=== PATIENT | male | born 1975 | race Caucasian/White ===

== ENCOUNTER 2017-12-21 17:40 | Inpatient (IN) | payer MEDICARE, MEDICAID ==
[~2017-12-21 17:40] MED LIST: ISOVUE-370 76%-LOCM 1 ML ONE
[2017-12-21] MEDS ORDERED: Promethazine HCl 25 MG/ML VIAL ONE ×2 (17:51→22:13)
[2017-12-21] MEDS ORDERED: Fentanyl 100 MCG/2 ML VIAL ONE (17:57)
[2017-12-21] MEDS ORDERED: Lorazepam 2 MG/ML VIAL ONE (18:16)
[2017-12-21 19:00] LABS: Bilirubin Small (Negative); Blood, Urine Negative (Negative); Clarity CLEAR (Clear); Glucose, Urine (Dipstick) Negative (Negative); Leukocyte Trace (Negative); Nitrite Negative (Negative); Protein, Urine (Dipstick) 30 mg/dL (Neg-Trace); Specific Gravity, Urine 1.026 (1.002-1.036); pH, Urine 5.5 (5.0-9.0)
[2017-12-21 19:02] LABS: Bacteria/HPF None Seen HPF (None Seen); Hyaline Casts/LPF 0-3 HYALINE CAST LPF (0-3 Hyaline); Pathc Cast-AUWi Flag 0.43 (0-2.49); RBC/HPF 0-3 HPF (0-3); Squamous Epithelial 0-3 HPF (0-3)
[2017-12-21 19:09] LABS: Amphetamine Not Detected (NotDetected); Barbiturates Screen Not Detected (NotDetected); Benzodiazepine Screen Detected (NotDetected); Cocaine Metabolite Screen Not Detected (NotDetected); Medtox Control Line Valid? VALID (VALID); Medtox Reader # READER 1; Methadone Not Detected (NotDetected); Methamphetamine Not Detected (NotDetected); Opiate Screen Detected (NotDetected); Oxycodone Screen Not Detected (NotDetected); Phencyclidine (PCP) Not Detected (NotDetected); THC/Cannabinoid Screen Not Detected (NotDetected); Tricyclic Screen Not Detected (NotDetected)
[2017-12-21 19:16] LABS: Crystals/HPF 3+ CA OXALATE HPF (Negative)
[2017-12-21 19:25] LABS: #Basophils 0.1 thou/uL (0.0-0.2); #Eosinphils 0.1 thou/uL (0.0-0.7); #Lymphocytes 1.8 thou/uL (1.20-3.40); #Monocytes 1.2 thou/uL (0.11-0.59); #Neutrophils 15.1 thou/uL (1.40-6.50); %Basophils 0.3 % (0.0-1.0); %Eosinophils 0.7 % (0.0-10.0); %Lymphocytes 9.7 % (21.0-51.0); %Monocytes 6.7 % (0.0-10.0); %Neutrophils 82.5 % (42.0-75.0); Hemoglobin 16.5 g/dL (14.0-18.0); Mean Corpuscular HGB CONC 34.1 g/dL (32.0-36.0); Mean Corpuscular Hemoglobin 31.6 pg (27.0-31.0); Mean Corpuscular Volume 92.7 fL (78.0-98.0); Mean Platelet Volume 8.4 fL (7.4-10.4); Platelet Count 236 thou/uL (130-400); RBC Distribution Width 12.3 % (11.5-14.5); Red Blood Cell (RBC) Count 5.23 mill/uL (4.70-6.10); White Blood Cell (WBC) Count 18.3 thou/uL (4.8-10.8)
[2017-12-21 19:41] LABS: Acetaminophen Less than 6.0 mcg/mL (10.0-30.0); Alcohol Less than 10 mg/dL (Less than 10); Lipase 35 U/L (8-78); Salicylate Less than 8.0 mg/dL (15.0-30.0)
[2017-12-21 19:43] LABS: ALT (SGPT) 8 U/L (8-55); AST (SGOT) 13 U/L (5-34); Albumin 4.3 g/dL (3.5-5.0); Alkaline Phosphatase 47 U/L (40-150); Anion Gap 13 mmol/L (10-20); BUN (Urea Nitrogen) 14 mg/dL (8.9-20.6); Bilirubin, Total 1.9 mg/dL (0.2-1.2); CK (CPK) 164 U/L (30-200); Calc. Creatinine Clearance 0 mL/min (70-130); Calcium 9.2 mg/dL (7.8-10.44); Carbon Dioxide 19 mmol/L (22-29); Chloride 109 mmol/L (98-107); Estimated GFR-MDRD 74; Globulin 3.1 g/dL (2.4-3.5); Glucose 115 mg/dL (70-105); Potassium 3.7 mmol/L (3.5-5.1); Protein, Total 7.4 g/dL (6.0-8.3); Sodium 137 mmol/L (136-145)
[2017-12-21 19:46] LABS: CKMB 0.9 ng/mL (0-6.6); Troponin I Less than 0.010 ng/mL (< 0.028)
--- NOTE | 2017-12-21 19:59 | RAD ---
ONE VIEW CHEST: HISTORY: Pain. COMPARISON: 06/27/2015 FINDINGS: There are sternotomy wires. There is a normal cardiac silhouette. The pulmonary vessels and hilum a re normal. No consolidation or mass. No pneumothorax or osseous abnormalities. IMPRESSION: No acute cardiopulmonary process. POS: PPP
[2017-12-21] MEDS ORDERED: Enoxaparin Sodium 100 MG/ML SYRINGE ONE (20:49)
[2017-12-21] MEDS ORDERED: Acetaminophen 500 MG TAB ONE (20:49)
--- NOTE | 2017-12-21 21:30 | CT ---
CT ANGIOGRAM CHEST: HISTORY: Evaluate for pulmonary artery embolism. Chest pain x1 day. COMPARISON: None. TECHNIQUE: CT angiogram of the chest was performed in the axial plane, and 3-dimensionsl reformatted images were submitted for interpretation. FINDINGS: No mediastinal mass, lymphadenopathy, or hematoma. Heart size is within normal limits. No pericardi al effusion. The thoracic aorta and upper abdominal aorta have a normal caliber. No periaortic fat stranding. Coronary stents are noted. The visualized upper solid organs are unremarkable. There are dependent atelectatic changes. No suspicious masses or consolidation in the lung parenchym a. The trachea and central bronchi are patent. No lytic or blastic lesion in the osseous structures. Patchy, nonspecific ground glass opacities are noted. There is no pleural effusion or pneumothorax. Adequate contrast opacification of the pulmonary arterial system, to the level of the segmental arter ies. No filling defect to suggest thromboembolism. IMPRESSION: No evidence of pulmonary artery embolism to the level of the segmental arteries. POS: PPP
[2017-12-21 22:55] LABS: Troponin I Less than 0.010 ng/mL (< 0.028)
[2017-12-22] MEDS ORDERED: Sodium Chloride 0.9% 1,000 ML IV SCH (00:15)
[2017-12-22 00:25] VITALS: BMI 34.2
[2017-12-22] MEDS ORDERED: HYDROcodone/Acetaminophen 10/325 mg Tablet PO PRN ×2 (01:28→01:30)
[2017-12-22] MEDS: ALPRAZolam 1 MG TAB PO PRN ×3 (01:43→21:27)
[2017-12-22 02:25] LABS: Troponin I Less than 0.010 ng/mL (< 0.028)
[2017-12-22] MEDS ORDERED: Ondansetron ODT 4 MG TAB PO PRN (07:22)
[2017-12-22] MEDS ORDERED: Acetaminophen 325 MG TAB PO PRN (07:22)
[2017-12-22] MEDS ORDERED: Ondansetron HCl/PF 4 MG/2 ML Vial IVP PRN (07:22)
[2017-12-22] MEDS ORDERED: Bisacodyl 5 MG TAB PO PRN (07:22)
--- NOTE | 2017-12-22 08:43 | HP ---
CHIEF COMPLAINT: Chest pain. HISTORY OF PRESENT ILLNESS: This is a 42-year-old male with past medical history of hypertension, hy perlipidemia, coronary artery disease, KS in 2009, 2013, and 2014 x 2, CABG with 3-vessel disease and cardiac stents x7, chronic back pain, being admitted for chest pain. He had chest pain that came on suddenly and it was worse. Chest pain is very similar to the previous KS that he had in the past. The patient stated that the chest pain was substernal, radiated to the left arm and also to the throa t. The patient states that the chest pain was dull and pressure-like and it felt like an elephant wa s sitting on his chest and during the time of him feeling the dull chest pain, he was also diaphoreti c. The patient states that he thought the pain was going to subside by itself. However, after 5:00 p.m. , the pain was 8/10 and it was unbearable; therefore he came to the hospital. The patient states jesus t morphine helps with the pain, morphine and fentanyl helps with the pain and the patient has been gi ciro 3 sublingual nitro and patch which he states that it has helped with his pain. In the ED it was documented the patient's blood pressure was in the 200/120 systolic when en route to the hospital. T he patient has associated symptoms of shortness of breath. REVIEW OF SYSTEMS: Positive for shortness of breath, chest pain, otherwise as documented in the HPI. All other systems were reviewed and are negative. FAMILY HISTORY: Mom had heart issues and cancer, at 57. Dad 61 also has heart issues. PAST MEDICAL HISTORY: Hypertension, kidney stones, chronic back pain, coronary artery disease, KS, c ardiac stents x7. PAST SURGICAL HISTORY: CABG 3-vessel disease, bilateral knee replacement, tonsillectomy. ALLERGIES: CALCIUM CHANNEL BLOCKERS, KETORALAC, ODANSETRON, TORADOL, ORAL TRAMADOL. CURRENT MEDICATIONS: Aspirin 325 mg, lisinopril 10 mg, metoprolol 150 mg, pantoprazole 40 mg, Xanax 0.5 mg, Noel 10 mg/325 mg. PSYCHIATRIC HISTORY: The patient was previously admitted inpatient psych in 2011. Patient has bipol ar disorder. SOCIAL HISTORY: The patient tends to have tendency for drug seeking habit. The patient denies alcoh ol use, denies any illicit drug use, but currently smokes tobacco, patient smokes half a pack a day. PHYSICAL EXAMINATION: VITAL SIGNS: Blood pressure is 142/78, pulse 78, respiratory rate of 18, O2 sat of 96% on room air. GENERAL: The patient is alert, oriented x3, not in acute distress at this time, the patient is speak ing in full sentences. HEENT: Normocephalic, atraumatic. Pupils are equally round and reactive to light. Extraocular lance rs are intact. No scleral icterus. Mucous membranes are moist. NECK: Trachea is midline. No JVD, no meningeal signs. RESPIRATORY: Clear to auscultation bilaterally. No wheezing, no rales, no rhonchi is appreciated. CARDIOVASCULAR: Positive S1, S2, regular rate and rhythm. No murmurs appreciated. ABDOMEN: Positive bowel sounds, nontender, nondistended. No peritoneal signs. EXTREMITIES: Upper extremity, 5/5 upper extremity strength. No cyanosis, no clubbing, no edema. Lo wer extremities; good motor strength. No cyanosis, no edema. NEUROLOGIC: Cranial nerves II-XII grossly intact. No focal neurologic deficit noted. SKIN: Warm, dry and intact. EKG done in the ED showed normal sinus rhythm with a rate of 79. The patient has a right bundle bran ch block. IMAGING: CTA of the chest negative. No pulmonary emboli or dissection noted. ED COURSE: The patient was given Phenergan, morphine injection, Lovenox therapeutic, Tylenol. LABORATORY DATA: WBC 18.3, hemoglobin 16.5, hematocrit 48.5, platelet count is 236. D-dimer 0.59. Sodium 137, potassium 3.7, chloride 109, carbon dioxide of 19, anion gap of 13, BUN is 14, creatinine is 1.08, glucose 115. Total bilirubin is 1.9. Troponin is less than 0.010. Urinalysis; trace leuk oesterase. Toxicology patient has opioids detected in urine and also benzodiazepines. ASSESSMENT AND PLAN: 1. This is a 42-year-old male with extensive cardiac history being admitted for chest pain. At this point, we will rule out acute coronary syndrome. We have ordered troponins. Troponins at this time has been negative thus far. We will get Cardiology consult due to the patient's extensive cardiac h istory, we will order an echo to evaluate the patient's heart and will continue patient on his curren t medications and continue current management. 2. History of hyperlipidemia. We will continue patient on current management. 3. History of hypertension. We will continue patient on current management. 4. History of coronary artery disease. Continue patient on current management. 5. Deep venous thrombosis and gastrointestinal prophylaxis. We will do SCDs and no chemical gastroi ntestinal prophylaxis needed. 6. Tobacco abuse. We have instructed the patient to quit smoking.
[2017-12-22] MEDS ORDERED: Aspirin 325 mg Enteric Coated Tablet PO SCH (09:00)
[2017-12-22] MEDS: HYDROcodone/Acetaminophen 10/325 mg Tablet PO PRN ×3 (09:07→21:26)
[2017-12-22] MEDS: Lisinopril 10 MG TAB PO SCH (09:08)
[2017-12-22] MEDS: Nicotine 21 MG PATCH TD SCH (09:08)
[2017-12-22] MEDS ORDERED: Clopidogrel Bisulfate 300 MG TAB PO SCH (11:30)
[2017-12-22 12:15] LABS: Troponin I Less than 0.010 ng/mL (< 0.028)
--- NOTE | 2017-12-22 13:52 | CON ---
DATE OF CONSULTATION: 12/22/2017 HISTORY: The patient is a 42-year-old gentleman with a long history of coronary artery disease who presents with recurrent chest discomfort. The patient has previously undergone coronary bypass graft surgery. He had a RUSSELL placed to the LAD and a saphenous vein graft to the posterior descending artery. The patient also has had multiple stents placed. The patient most recently had a stent placed in [place] at [facility]. The patient states he usually has stable angina that responds to nitroglycerin tablets. The patient stated yesterday he developed severe recurrent chest discomfort. He took several nitroglycerin's without relief of his pain. The patient states that it was a severe discomfort that was associated with diaphoresis. The patient states the pain has continued throughout the day. He states he still feels discomfort. PAST MEDICAL HISTORY: 1. Coronary artery disease. 2. Hypertension. 3. Dyslipidemia. 4. Kidney stones. 5. Bipolar disorder. PAST SURGICAL HISTORY: Coronary bypass surgery, knee replacement,and tonsillectomy. ALLERGIES: CALCIUM CHANNEL BLOCKERS, KETORLAC, ALDOSTERONE, TORADOL. CURRENT MEDICATIONS: See nursing list. SOCIAL HISTORY: The patient continues to abuse tobacco. MEDICATIONS ON ADMISSION: Lisinopril 10 daily, alprazolam 2 b.i.d., Protonix 80 daily, aspirin 325 daily, metoprolol 50 b.i.d. REVIEW OF SYSTEMS: Noticeable for continued chest discomfort and for anxiety. PHYSICAL EXAMINATION: GENERAL: This is an obese gentleman in mild distress. VITAL SIGNS: Blood pressure 102/62. NECK: No jugular venous distention. LUNGS: Clear to auscultation. HEART: Regular rate and rhythm, normal S1, S2, no murmurs. ABDOMEN: Nondistended. EXTREMITIES: Showed trace edema. LABORATORY: Sodium 137, potassium 3.7, chloride 109, bicarbonate 19, BUN 14, creatinine 1.0, troponin less than 0.01. White blood cell count 18.3, hemoglobin 16.5, hematocrit 48.5, platelets 236. His EKG revealed him to have normal sinus rhythm with a prolonged first degree AV block and a right bundle branch block. IMPRESSION: 1. Chest pain, possibly due to angina. 2. History of coronary bypass surgery. 3. History of multiple stents. 4. Tobacco abuse. 5. Dyslipidemia. 6. Bipolar disorder. This gentleman presents with recurrent chest pain. Despite severe discomfort there is no evidence of a myocardial infarction. The patient will be treated with Plavix. We will restart the patient on Crestor. Further recommendations to follow. MTDD
--- NOTE | 2017-12-22 17:30 | PDOC.PN ---
- Subjective Encounter Start Date: 12/22/17 Encounter Start Time: 10:15 Subjective: pt up in bed still has some chest pain - Objective Resuscitation Status: Resuscitation Status FULL:Full Resuscitation Vital Signs & Weight: Vital Signs (12 hours) Temp Pulse Resp BP Pulse Ox 12/22/17 15:50 97.8 F 68 16 104/68 97 12/22/17 11:32 98.3 F 85 16 101/59 L 95 12/22/17 08:33 95 12/22/17 07:48 97.4 F L 55 L 16 102/62 95 Weight Weight 219 lb Result Diagrams: 12/21/17 19:17 12/21/17 19:17 Phys Exam - Physical Examination Respiratory: no wheezing, no rales, no rhonchi, wheezing present, clear to auscultation bilateral Cardiovascular: RRR, no significant murmur, no rub, gallop, irregular Gastrointestinal: soft, non-tender, no distention, positive bowel sounds pain on palpaiton of his chest wall area Dx/Plan (1) Chest pain Code(s): R07.9 - CHEST PAIN, UNSPECIFIED Status: Acute (2) CAD (coronary artery disease) Code(s): I25.10 - ATHSCL HEART DISEASE OF [place] CORONARY ARTERY W/O ANG PCTRS Status: Chronic (3) Hypertension Code(s): I10 - ESSENTIAL (PRIMARY) HYPERTENSION Status: Chronic - Plan trop negative -: echo ordered -: will await cardiology recommendation * . Review of Systems - Review of Systems ENT: negative: Ear Pain, Ear Discharge, Nose Pain, Nose Discharge, Nose Congestion, Mouth Pain, Mouth Swelling, Throat Pain, Throat Swelling, Other Cardiovascular: chest pain Gastrointestinal: negative: Nausea, Vomiting, Abdominal Pain, Diarrhea, Constipation, Melena, Hematochezia, Other Genitourinary: negative: Dysuria, Frequency, Incontinence, Hematuria, Retention , Other Musculoskeletal: negative: Neck Pain, Shoulder Pain, Arm Pain, Back Pain, Hand Pain, Leg Pain, Foot Pain, Other - Medications/Allergies Allergies/Adverse Reactions: Allergies Allergy/AdvReac Type Severity Reaction Status Date / Time ketorolac tromethamine Allergy Verified 12/22/17 00:24 [From Toradol] ondansetron HCl [From Zofran] Allergy Verified 12/22/17 00:24 tramadol Allergy Verified 12/22/17 00:24 Calcium channel blockers Allergy Intermediate Uncoded 06/28/15 01:05 Medications: Current Medications Acetaminophen (Tylenol) 650 mg PO Q4H PRN PRN Reason: Headache/Fever or Pain Hydrocodone Bitart/Acetaminophen ([place] 10/325) 2 tab PO Q6H PRN PRN Reason: Pain Last Admin: 12/22/17 15:30 Dose: 2 tab Alprazolam (Xanax) 2 mg PO BID PRN PRN Reason: Anxiety Aspirin (Ecotrin) 75 mg PO DAILY [facility] Bisacodyl (Dulcolax) 10 mg PO DAILYPRN PRN PRN Reason: Constipation Clopidogrel Bisulfate (Plavix) 75 mg PO DAILY [facility] Lisinopril (Zestril) 10 mg PO DAILY [facility] Last Admin: 12/22/17 09:08 Dose: 10 mg Metoprolol Succinate (Toprol Xl) 50 mg PO BID [facility] Last Admin: 12/22/17 09:08 Dose: 50 mg Nicotine (Nicoderm Patch) 21 mg TD Q24HR [facility] Last Admin: 12/22/17 09:08 Dose: Not Given Pantoprazole Sodium (Protonix) 80 mg PO DAILY [facility] Last Admin: 12/22/17 09:08 Dose: 80 mg Rosuvastatin Calcium (Crestor) 10 mg PO HS [facility] Sodium Chloride (Flush - Normal Saline) 10 ml IVF Q12HR [facility] Last Admin: 12/22/17 09:08 Dose: Not Given Sodium Chloride (Flush - Normal Saline) 10 ml IVF PRN PRN PRN Reason: Saline Flush
[2017-12-22] MEDS: Rosuvastatin 10 MG TAB PO SCH (21:23)
[2017-12-23 05:09] LABS: #Basophils 0.1 thou/uL (0.0-0.2); #Eosinphils 0.2 thou/uL (0.0-0.7); #Lymphocytes 2.6 thou/uL (1.20-3.40); #Monocytes 0.5 thou/uL (0.11-0.59); #Neutrophils 2.5 thou/uL (1.40-6.50); %Eosinophils 2.9 % (0.0-10.0); %Lymphocytes 44.2 % (21.0-51.0); %Monocytes 8.6 % (0.0-10.0); %Neutrophils 43.4 % (42.0-75.0); Hemoglobin 14.6 g/dL (14.0-18.0); Mean Corpuscular HGB CONC 32.4 g/dL (32.0-36.0); Mean Corpuscular Hemoglobin 30.6 pg (27.0-31.0); Mean Corpuscular Volume 94.5 fL (78.0-98.0); Platelet Count 189 thou/uL (130-400); RBC Distribution Width 12.4 % (11.5-14.5); Red Blood Cell (RBC) Count 4.76 mill/uL (4.70-6.10); White Blood Cell (WBC) Count 5.8 thou/uL (4.8-10.8)
[2017-12-23 05:28] LABS: Anion Gap 11 mmol/L (10-20); BUN (Urea Nitrogen) 15 mg/dL (8.9-20.6); Calc. Creatinine Clearance 139 mL/min (70-130); Calcium 8.7 mg/dL (7.8-10.44); Carbon Dioxide 22 mmol/L (22-29); Chloride 108 mmol/L (98-107); Estimated GFR-MDRD 86; Glucose 83 mg/dL (70-105); Potassium 4.1 mmol/L (3.5-5.1); Sodium 137 mmol/L (136-145)
[2017-12-23] MEDS: Clopidogrel Bisulfate 75 MG TAB PO SCH (08:51)
[2017-12-23] MEDS: Lisinopril 10 MG TAB PO SCH (08:51)
[2017-12-23] MEDS: Aspirin 325 mg Enteric Coated Tablet PO SCH (08:51)
[2017-12-23] MEDS: Nicotine 21 MG PATCH TD SCH (08:52)
[2017-12-23] MEDS: ALPRAZolam 1 MG TAB PO PRN ×2 (14:29→21:06)
[2017-12-23] MEDS: HYDROcodone/Acetaminophen 10/325 mg Tablet PO PRN ×2 (14:29→20:29)
--- NOTE | 2017-12-23 14:59 | NM ---
CARDIAC SPECT: CLINICAL HISTORY: 42-year-old male with chest pain, coronary artery disease, [place], CABG, stent placement, hypertension, d yslipidemia, and smoker. TECHNIQUE: A myocardial perfusion scan was performed using the single isotope one day protocol with technetium-9 9m sestamibi. 10 mCi were injected intravenously for the rest exam followed by 27 mCi for the stress exam. Pharmacologic stress with Adenosine was monitored and interpreted by Blatazar Kaiser NP. FINDINGS: A large inferior wall fixed defect is seen. No reversible defects are identified. GATED SPECT LVEF: 42%. WALL MOTION EXAM: Inferior wall hypokinesis. IMPRESSION: No evidence of reversible ischemia. POS: SONIA
[2017-12-23] MEDS ORDERED: ADENOSINE 60 MG/20 ML VIAL ONE (15:11)
--- NOTE | 2017-12-23 16:34 | PRG ---
DATE OF SERVICE: 12/23/2017 SUBJECTIVE: Mr. Cosme says he is still having chest pain today, it is improved, but still havi ng pain intermittently still going outside to smoke. OBJECTIVE: VITAL SIGNS: His blood pressure 120/59, pulse is 74. LUNGS: Clear. CARDIAC: Normal S1, normal S2. ABDOMEN: Soft, nontender. EXTREMITIES: There is no clubbing, no cyanosis or edema. A stress test that revealed a previous inferior infarct with no ischemia. The patient states he had stents "since" placed [facility] 2018 at [facility] in [place]. No details are available of that. He also told me he has had stents placed here, but reviewing the harish rds, he has had cardiac catheterizations in 2014 and 2015, but did not have stents placed, he had dif fuse atherosclerotic disease. ASSESSMENT: 1. Continued chest pain. 2. Diffuse atherosclerosis. 3. Continue chest pain. PLAN: 1. Ultrasound of the gallbladder. 2. We will try to obtain all records from recent cardiac catheterization.
[2017-12-23] MEDS: Rosuvastatin 10 MG TAB PO SCH (20:28)
--- NOTE | 2017-12-23 21:11 | DIS ---
DATE OF ADMISSION: 12/22/2017 DATE OF DISCHARGE: 12/23/2017 DISCHARGE DIAGNOSES: 1. Chest pain. 2. History of coronary artery disease. 3. Hypertension. HOSPITAL COURSE: The patient is a very pleasant 42-year-old male who presented to the hospital with chest pain. Given his significant history of coronary artery disease, he initially underwent a CT th orax for mildly elevated D-dimer. The CT thorax indicated no evidence of embolism. At this time, he was seen by Cardiology. His troponins x3 were negative. He underwent initially an echocardiogram w [facility] indicated an EF of 40-45%, mildly dilated left atrium, mildly enlarged left ventricle and after that he underwent a nuclear stress test which indicated he had a noninferior wall hypokinesia; howeve r, no evidence of reversible ischemia. The patient was discharged home. He will follow up with Card iology and primary care as an outpatient. MEDICATIONS: His home medications are the following: Lisinopril 10 mg daily, Xanax 2 mg b.i.d. p.r. n., Protonix 80 mg daily, metoprolol 50 mg b.i.d., Crestor 10 mg at bedtime, Clopidogrel 75 daily, as pirin 75 mg daily. This was done by the director of individual giving. PHYSICAL EXAMINATION: VITAL SIGNS: Temperature of 98.4, 62, 16, 97% room air, 136/75. GENERAL: He is awake, alert, oriented, is in no apparent distress. CARDIOVASCULAR: S1, S2 present. No murmurs, rubs or gallops. ABDOMEN: Soft, nontender. Bowel sounds positive. EXTREMITIES: No edema. Again, he will be discharged home. Follow up with primary and Cardiology.
--- NOTE | 2017-12-24 08:05 | ULT ---
GALLBLADDER ULTRASOUND: Date: 12/24/17 HISTORY: Right upper quadrant pain. FINDINGS: Real-time imaging of the right upper quadrant demonstrates a normal appearing gallbladder. Common jac t is 5.0 mm. Visualized liver parenchyma shows no focal abnormalities. It measures approximately 18.0 cm in length. The pancreas is obscured. Right kidney is normal in size and not obstructed. IMPRESSION: Unremarkable gallbladder ultrasound. POS: CALLY
--- NOTE | 2017-12-24 08:44 | PDOC.PN ---
- Subjective Encounter Start Date: 12/23/17 - Objective Resuscitation Status: Resuscitation Status FULL:Full Resuscitation Vital Signs & Weight: Vital Signs (12 hours) Temp Pulse Resp BP BP Pulse Ox 12/24/17 08:24 97.6 F 63 20 117/57 L 99 12/24/17 04:00 97.4 F L 52 L 14 125/73 97 12/23/17 23:27 98.1 F 54 L 14 107/61 96 Weight Weight 219 lb I&O: 12/23/17 12/24/17 12/25/17 06:59 06:59 06:59 Intake Total 730 Balance 730 Result Diagrams: 12/23/17 04:38 12/23/17 04:38 Dx/Plan (1) Chest pain Code(s): R07.9 - CHEST PAIN, UNSPECIFIED Status: Acute (2) CAD (coronary artery disease) Code(s): I25.10 - ATHSCL HEART DISEASE OF [place] CORONARY ARTERY W/O ANG PCTRS Status: Chronic (3) Hypertension Code(s): I10 - ESSENTIAL (PRIMARY) HYPERTENSION Status: Chronic - Plan * .
[2017-12-24] MEDS: ALPRAZolam 1 MG TAB PO PRN ×2 (10:01→20:28)
[2017-12-24] MEDS: HYDROcodone/Acetaminophen 10/325 mg Tablet PO PRN ×3 (10:02→23:45)
[2017-12-24] MEDS: Clopidogrel Bisulfate 75 MG TAB PO SCH (10:03)
[2017-12-24] MEDS: Lisinopril 10 MG TAB PO SCH (10:03)
[2017-12-24] MEDS: Nicotine 21 MG PATCH TD SCH (10:08)
[2017-12-24] MEDS: Aspirin 325 mg Enteric Coated Tablet PO SCH (10:14)
--- NOTE | 2017-12-24 16:40 | PDOC.PN ---
- Subjective Encounter Start Date: 12/24/17 Encounter Start Time: 12:30 Subjective: pt up in bed has chest pain - Objective Resuscitation Status: Resuscitation Status FULL:Full Resuscitation Vital Signs & Weight: Vital Signs (12 hours) Temp Pulse Resp BP Pulse Ox 12/24/17 16:04 97.8 F 66 16 149/78 H 96 12/24/17 11:36 98.4 F 56 L 16 110/55 L 95 12/24/17 08:24 97.6 F 63 20 117/57 L 99 Weight Weight 219 lb I&O: 12/23/17 12/24/17 12/25/17 06:59 06:59 06:59 Intake Total 730 Balance 730 Result Diagrams: 12/23/17 04:38 12/23/17 04:38 Phys Exam - Physical Examination Neck: no nodes, no JVD, supple, full ROM Respiratory: no wheezing, no rales, no rhonchi, wheezing present, clear to auscultation bilateral Cardiovascular: RRR, no significant murmur, no rub, gallop, irregular Gastrointestinal: soft, non-tender, no distention, positive bowel sounds Dx/Plan (1) Chest pain Code(s): R07.9 - CHEST PAIN, UNSPECIFIED Status: Acute (2) CAD (coronary artery disease) Code(s): I25.10 - ATHSCL HEART DISEASE OF [place] CORONARY ARTERY W/O ANG PCTRS Status: Chronic (3) Hypertension Code(s): I10 - ESSENTIAL (PRIMARY) HYPERTENSION Status: Chronic - Plan pt's stress test negative, RUQ normal -: awaiting records per cardiology recommendation -: Having a 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 Review of Systems - Review of Systems Respiratory: negative: Cough, Dry, Shortness of Breath, Hemoptysis, SOB with Excertion, Pleuritic Pain, Sputum, Wheezing Cardiovascular: chest pain. negative: palpitations, orthopnea, paroxysmal nocturnal dyspnea, edema, light headedness, other Genitourinary: negative: Dysuria, Frequency, Incontinence, Hematuria, Retention , Other - Medications/Allergies Allergies/Adverse Reactions: Allergies Allergy/AdvReac Type Severity Reaction Status Date / Time ketorolac tromethamine Allergy Verified 12/22/17 00:24 [From Toradol] ondansetron HCl [From Zofran] Allergy Verified 12/22/17 00:24 tramadol Allergy Verified 12/22/17 00:24 Calcium channel blockers Allergy Intermediate Uncoded 06/28/15 01:05 Medications: Current Medications Acetaminophen (Tylenol) 650 mg PO Q4H PRN PRN Reason: Headache/Fever or Pain Hydrocodone Bitart/Acetaminophen ([place] 10/325) 2 tab PO Q6H PRN PRN Reason: Pain Last Admin: 12/24/17 10:02 Dose: 2 tab Alprazolam (Xanax) 2 mg PO BID PRN PRN Reason: Anxiety Last Admin: 12/24/17 10:01 Dose: 2 mg Aspirin (Ecotrin) 75 mg PO DAILY [facility] Last Admin: 12/24/17 10:14 Dose: 75 mg Bisacodyl (Dulcolax) 10 mg PO DAILYPRN PRN PRN Reason: Constipation Clopidogrel Bisulfate (Plavix) 75 mg PO DAILY [facility] Last Admin: 12/24/17 10:03 Dose: 75 mg Lisinopril (Zestril) 10 mg PO DAILY [facility] Last Admin: 12/24/17 10:03 Dose: 10 mg Metoprolol Succinate (Toprol Xl) 50 mg PO BID [facility] Last Admin: 12/24/17 10:03 Dose: 50 mg Nicotine (Nicoderm Patch) 21 mg TD Q24HR [facility] Last Admin: 12/24/17 10:08 Dose: Not Given Pantoprazole Sodium (Protonix) 80 mg PO DAILY [facility] Last Admin: 12/24/17 10:03 Dose: 80 mg Rosuvastatin Calcium (Crestor) 10 mg PO HS [facility] Last Admin: 12/23/17 20:28 Dose: 10 mg Sodium Chloride (Flush - Normal Saline) 10 ml IVF Q12HR [facility] Last Admin: 12/24/17 10:08 Dose: 10 ml Sodium Chloride (Flush - Normal Saline) 10 ml IVF PRN PRN PRN Reason: Saline Flush
--- NOTE | 2017-12-24 18:38 | PRG ---
DATE OF SERVICE: 12/24/2017 SUBJECTIVE: Mr. Cosme is resting comfortably now. He says he still has chest pain, which is relatively continuous. OBJECTIVE: VITAL SIGNS: His blood pressure has been variable, 110/55, 149/78; pulse 56 to 66, frequently to low 50s. LUNGS: Clear. CARDIAC: Normal S1, normal S2. The patient did have ultrasound of the abdomen, unremarkable gallbladder. ASSESSMENT: 1. Coronary artery disease with diffuse distal atherosclerosis. 2. Previous bypass surgery. 3. Most recent catheterization done here in 2014 revealed that he had a patent internal mammary charlene ry to the LAD. He had a stent placed to his LAD at an outside institution, which was patent. 4. Vein graft to the right coronary artery is occluded. 5. Circumflex, small distal vessels, no obstructive stenosis. 6. Right bundle branch block, which is chronic. The patient initially told us that he was in a specific hospital in [place], which he found that he was not in. Multiple other hospitals were contacted per the family's direction. He has not been in any of those. He now tells us that he was in [place] in [place]. We are attempting to obtain those records . The patient has had stress testing, which showed previous infarct with no ischemia. At this point , I discussed with the patient, we could do heart catheterization to further define the coronaries an d see if there is anything further that could be done. The prognosis is likely poor in this gentlema n, who has severe disease at a young age and continues to smoke. He understands he is uncertain whet her he wishes to pursue catheterization. I told him we could do that tomorrow to see if there is any thing else that could be done to improve his symptoms. The patient is uncertain about that at this t rosey. We would recommend increasing his cholesterol medicine.
[2017-12-24] MEDS: Rosuvastatin 10 MG TAB PO SCH (20:28)
[2017-12-25] MEDS ORDERED: Aspirin 81 mg Enteric Coated Tablet PO SCH (09:00)
[2017-12-25] MEDS ORDERED: Amlodipine 5 MG TAB PO SCH (09:00)
[2017-12-25] MEDS: ALPRAZolam 1 MG TAB PO PRN (09:16)
[2017-12-25] MEDS: HYDROcodone/Acetaminophen 10/325 mg Tablet PO PRN (09:17)
[2017-12-25] MEDS: Clopidogrel Bisulfate 75 MG TAB PO SCH (09:17)
[2017-12-25] MEDS: Lisinopril 10 MG TAB PO SCH (09:18)
[2017-12-25] MEDS: Nicotine 21 MG PATCH TD SCH (09:19)
[2017-12-25 12:25] VITALS: BP 166/88; TEMP 97.9
--- NOTE | 2017-12-25 13:45 | PRG ---
DATE OF SERVICE: 12/25/2017 Mr. Cosme is feeling better today. Still has occasional chest pain, but it is improved. PHYSICAL EXAMINATION: VITAL SIGNS: Blood pressure is variable 153/83, pulse 74. LUNGS: Clear. CARDIAC: Normal S1, normal S2. ABDOMEN: Soft, nontender. EXTREMITIES: There is no edema. After a PROLONGED search by the staff here at [facility], we were able to finally track down his medical records. He initially gave us information about being in a different hospital, but ultimately found that it was in the [facility] system, it started out at [facility]. He underwent diagnostic catheterization and it was felt the situation at that point was thought to be very high risk for any further intervention. Therefore, he was transferred for high risk intervention with possible availability of Impella at [facility] in [facility]. The coronary anatomy showed the LAD is occluded. The circumflex was a small diffusely diseased vessel. Right coronary occluded. RCA graft previously documented occluded. The patient had intervention on the stent at the anastomosis, 6 Icelandic internal mammary artery guide was used. It was predilated with a 2.5 mm balloon then 2.75 mm balloon up to 17 atmospheres. It was thought that he had only a 5% residual stenosis after the balloon dilatation. The patient during this current admission has had no evidence of any ischemia on stress testing. He has a fixed defect of the inferior wall, but there is no ischemia of the anterior wall. At this time the patient declines cardiac catheterization. This catheterization could be repeated and if he has had restenosis consideration for another high risk intervention could be given versus repeat surgery. The patient unfortunately continues to smoke and he knows it is a very important not to smoke. The patient's blood pressure is elevated here. I would recommend consideration for increasing Crestor to 20 mg at bedtime and adding amlodipine 5 mg a day. It is not clear to me which physician who plans on following up. If he would like to follow up with me I would be glad to do that. He has not followed up with me anytime in the near past. Unfortunately, the patient did continue to smoke while here in the hospital at least initially during this hospitalization, although I do not think he went outside to smoke yesterday. assisted prognosis unfortunately is guarded to poor. KORTNEY
[2017-12-25] MEDS ORDERED: Rosuvastatin 20 MG TAB PO SCH (21:00)
--- NOTE | 2017-12-25 22:07 | DIS ---
DATE OF ADMISSION: 12/21/2017 DATE OF DISCHARGE: 12/25/2017 PRIMARY CARE PROVIDER: Antione Smallwood MD, [place]. DISCHARGE DIAGNOSES: 1. Chest pain 2. Likely cardiac source for chest pain. CONSULTATIONS DURING THIS HOSPITALIZATION: Cardiology, Dr. Rodriguez, patient was also seen by Dr. Meléndez. CONDITION OF PATIENT ON THE DAY OF DISCHARGE: I assessed Mr. Cosme on the day of discharge. He denies any current chest pain. He denies any nausea or vomiting. Vital signs are stable. S1 and S2 are heard, regular. Lungs are clear to auscultation bilaterally. DISCHARGE MEDICATIONS: Xanax 2 mg 2 times a day as needed, lisinopril 10 mg daily, Protonix 80 mg daily, NicoDerm CQ 21 mg transdermal every 24 hours, Norvasc 5 mg daily, aspirin 81 mg daily, Plavix 75 mg daily, Toprol-XL 50 mg daily, and Crestor 20 mg at bedtime. HOSPITAL COURSE: Mr. Cosme is a pleasant 42-year-old gentleman who was admitted to [facility] on 12/21/2017 for chest pain. Please refer to Dr. Rg's history and physical note dated 12/22/2017 for further details. He was seen by Cardiology Service. A 2D echocardiogram showed a left ventricle ejection fraction of 45-50%, mildly dilated left atrium , akinetic inferior wall segment, mildly enlarged right ventricle cavity, mildly increased left ventricular size, moderate mitral regurgitation and mild tricuspid regurgitation. Patient's old medical records were obtained. He had 1/3 functioning grafts. Patient was advised cardiac catheterization. After discussion with Cardiology Service, patient made an informed decision not to have cardiac catheterization. He is being advised to follow up with his primary care provider as an outpatient. 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 He has been advised to stop smoking. His Crestor dose was increased and amlodipine was added to his medications. He is being discharged on aspirin and Plavix. Many thanks for allowing me to participate in your patient's care. Please feel free to contact me with any questions or concerns. DISCHARGE DESTINATION: Home. TOTAL AMOUNT OF TIME SPENT COORDINATING THIS DISCHARGE: 34 minutes. [facility] CENTERQuinton
== END 2017-12-25 15:03 | disposition home or self-care (01) | DRG 303 ==
LOC: ERS 17:40 → 2SW 23:30
PROVIDERS: ADMIT Internal Medicine; ATTEND Internal Medicine
DX: I25.118 Atherosclerotic heart disease of native coronary artery with other forms of angina pectoris (principal); T82.898A Other specified complication of vascular prosthetic devices, implants and grafts, initial encounter; I10 Essential (primary) hypertension; E78.5 Hyperlipidemia, unspecified; I25.2 Old myocardial infarction; Z95.1 Presence of aortocoronary bypass graft; Z95.5 Presence of coronary angioplasty implant and graft; G89.29 Other chronic pain; Z87.442 Personal history of urinary calculi; Z96.653 Presence of artificial knee joint, bilateral; Z79.82 Long term (current) use of aspirin; F31.9 Bipolar disorder, unspecified; F17.210 Nicotine dependence, cigarettes, uncomplicated; I45.10 Unspecified right bundle-branch block
CPT/HCPCS: 36415; 71045; 71275; 76705; 78452; 80048; 80053; 80306; 80307; 81003; 81015; 82553; 83690; 83880; 84443; 84484; 85025; 85379; 93005; 93017; 93306; 96361; 96365; 96372; 96374; 96375; A4216; A9500; J0153; J1610; J1642; J1650; J2060; J2270; J2550; J3010

== ENCOUNTER 2018-09-05 15:35 | Emergency (ER) | payer MEDICARE, MEDICAID ==
[2018-09-05] MEDS ORDERED: HYDROcodone/Acetaminophen 5/325 mg Tablet ONE (16:18)
--- NOTE | 2018-09-05 16:18 | RAD ---
Radiograph right knee 4 views: HISTORY: Traumatic right knee pain FINDINGS: No fracture or dislocation IMPRESSION: Negative
--- NOTE | 2018-09-05 16:19 | RAD ---
Radiograph right ankle 3 views: HISTORY: Traumatic right ankle pain FINDINGS: Ankle mortise is congruent. Thin short linear soft tissue calcification directly posterior to posteri or malleolus. The adjacent osseous cortical surface appears well corticated, and therefore this is probably chronic. No linear fracture lucency visualized. IMPRESSION: No fracture
--- NOTE | 2018-09-05 16:41 | RAD ---
Radiograph right foot 3 views: HISTORY: 43-year-old male status post traumatic injury to right foot FINDINGS: No fracture, dislocation, or any other major osseous abnormality IMPRESSION: Negative
== END 2018-09-05 17:06 | disposition home or self-care (01) ==
LOC: SCSER 15:35
DX: S83.91XA Sprain of unspecified site of right knee, initial encounter (principal); S93.401A Sprain of unspecified ligament of right ankle, initial encounter; I25.10 Atherosclerotic heart disease of native coronary artery without angina pectoris; I25.2 Old myocardial infarction; I10 Essential (primary) hypertension; M19.90 Unspecified osteoarthritis, unspecified site; E78.00 Pure hypercholesterolemia, unspecified; F31.9 Bipolar disorder, unspecified; F17.210 Nicotine dependence, cigarettes, uncomplicated; X50.1XXA Overexertion from prolonged static or awkward postures, initial encounter; Y93.51 Activity, roller skating (inline) and skateboarding; Y99.8 Other external cause status

== ENCOUNTER 2019-01-10 17:50 | Observation (INO) | payer MEDICARE, MEDICAID ==
[2019-01-10 18:41] LABS: #Basophils 0.1 thou/uL (0.0-0.2); #Eosinphils 0.2 thou/uL (0.0-0.7); #Lymphocytes 1.7 thou/uL (1.20-3.40); #Monocytes 0.8 thou/uL (0.11-0.59); #Neutrophils 6.7 thou/uL (1.40-6.50); %Basophils 0.7 % (0.0-1.0); %Eosinophils 2.3 % (0.0-10.0); %Lymphocytes 17.8 % (21.0-51.0); %Monocytes 8.6 % (0.0-10.0); %Neutrophils 70.6 % (42.0-75.0); Hemoglobin 15.5 g/dL (14.0-18.0); Mean Corpuscular HGB CONC 35.2 g/dL (32.0-36.0); Mean Corpuscular Volume 90.9 fL (78.0-98.0); Mean Platelet Volume 8.7 fL (7.4-10.4); Platelet Count 211 thou/uL (130-400); RBC Distribution Width 12.1 % (11.5-14.5); Red Blood Cell (RBC) Count 4.85 mill/uL (4.70-6.10); White Blood Cell (WBC) Count 9.5 thou/uL (4.8-10.8)
[2019-01-10] MEDS ORDERED: Morphine 4 MG/ML VIAL ONE ×2 (18:44→20:47)
[2019-01-10] MEDS ORDERED: Aspirin Chewable 81 MG TAB ONE (18:45)
[2019-01-10] MEDS ORDERED: Promethazine HCl 25 MG/ML VIAL ONE (18:45)
[2019-01-10 19:06] LABS: ALT (SGPT) 21 U/L (8-55); AST (SGOT) 28 U/L (5-34); Albumin 4.2 g/dL (3.5-5.0); Alkaline Phosphatase 46 U/L (40-110); Anion Gap 14 mmol/L (10-20); BUN (Urea Nitrogen) 18 mg/dL (8.9-20.6); Bilirubin, Total 0.3 mg/dL (0.2-1.2); CK (CPK) 96 U/L (30-200); Calc. Creatinine Clearance 0 mL/min (70-130); Calcium 9.2 mg/dL (7.8-10.44); Carbon Dioxide 24 mmol/L (22-29); Chloride 104 mmol/L (98-107); Estimated GFR-MDRD 49; Globulin 3.5 g/dL (2.4-3.5); Glucose 89 mg/dL (70-105); Lipase 54 U/L (8-78); Potassium 4.9 mmol/L (3.5-5.1); Protein, Total 7.7 g/dL (6.0-8.3); Sodium 137 mmol/L (136-145)
--- NOTE | 2019-01-10 19:26 | RAD ---
FRONTAL RADIOGRAPH CHEST: Date: 01-10-19 Comparison: 12-21-17 History: Chest pain, syncope. FINDINGS: Heart and mediastinal contours are stable. Stable midline sternotomy wires. No pneumothorax or pleural fluid. No focal consolidation or alveolar edema. IMPRESSION: No focal consolidation or alveolar edema. POS: GIOVANNA
[2019-01-10 22:04] LABS: Troponin I 0.022 ng/mL (< 0.028)
[2019-01-10] MEDS ORDERED: Aspirin 325 MG TAB PO SCH (23:15)
--- NOTE | 2019-01-10 23:34 | PDOC.EVN ---
Event Note - Event Note Event Note: [id number] HP
[2019-01-11] VITALS: BMI 37.7
--- NOTE | 2019-01-11 00:04 | HP ---
CHIEF COMPLAINT: Chest pain. HISTORY OF PRESENT ILLNESS: Mr. Cosme is a 43-year-old male with past medical history of coronary artery disease, bipolar disorder, renal cancer, hypertension, hyperlipidemia, among others, presented to the emergency room with chest pain. The patient stated that he fell down after an episode of loss of consciousness. The patient also reports nausea. Initial workup in the emergency room including troponin at 0.02. EKG showed sinus rhythm with right bundle-branch block with frequent PVCs. Given the patient's presentation and risk factors, the patient is being admitted to the hospital for further management. PAST MEDICAL HISTORY: As mentioned above in the history of present illness. PAST SURGICAL HISTORY: 1. Cardiac stents. 2. Appendectomy. 3. Coronary artery bypass graft surgery. 4. Bilateral knee replacement. 5. Tonsillectomy. SOCIAL HISTORY: He smokes 1 pack a day. 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 Drinks alcohol socially. FAMILY HISTORY: Reviewed, noncontributory. HOME MEDICATIONS: Please see home medication reconciliation form for updated medications. ALLERGIES: ALLERGIC TO CALCIUM CHANNEL BLOCKERS. TORADOL, TRAMADOL, AND ZOFRAN. REVIEW OF SYSTEMS: Review of 14 systems negative except what is mentioned in the history of present illness. PHYSICAL EXAMINATION: GENERAL: The patient is awake, alert, does not appear to be in acute distress. VITAL SIGNS: Blood pressure 126/90, pulse is 87, respiratory rate is 14, temperature 98.2. HEAD: Normocephalic and atraumatic. NECK: Supple. No JVD. CHEST: Fair bilateral air entry. HEART: S1, S2. Regular. ABDOMEN: Soft, nontender. Bowel sounds present. NEUROLOGIC: Awake, alert, oriented x3. PSYCHIATRIC: Normal mood. LABORATORY DATA: Troponin 0.02. Creatinine 1.5. ASSESSMENT: 1. Acute chest pain. 2. Syncope? 3. Coronary artery disease with history of myocardial infarction. History of cardiac stents. 4. Bipolar disorder. PLAN: 1. Admit. 2. Telemetry monitoring. 3. Aspirin. 4. Orthostatic vital signs. 5. 2D echo. 6. Serial cardiac enzymes. 7. Consider cardiology consultation in a.m. 8. Reconcile home medications. 9. Deep venous thrombosis prophylaxis as appropriate. 10. Expected length of stay, at least 1 midnight if the patient is stable and further workup negative. Job ID: [id number]
[2019-01-11] MEDS ORDERED: ALPRAZolam 1 MG TAB PO PRN (00:36)
[2019-01-11] MEDS ORDERED: Promethazine 25 MG TAB PO PRN (00:36)
[2019-01-11] MEDS ORDERED: Dextrose 5 %-0.45 % NaCl 1,000 ML IV SCH (01:00)
[2019-01-11 01:01] LABS: Troponin I Less than 0.010 ng/mL (< 0.028)
[2019-01-11] MEDS: HYDROcodone/Acetaminophen 5/325 mg Tablet PO PRN ×2 (01:02→08:54)
[2019-01-11 04:30] LABS: Anion Gap 15 mmol/L (10-20); BUN (Urea Nitrogen) 24 mg/dL (8.9-20.6); Calc. Creatinine Clearance 120 mL/min (70-130); Calcium 8.6 mg/dL (7.8-10.44); Carbon Dioxide 19 mmol/L (22-29); Chloride 106 mmol/L (98-107); Estimated GFR-MDRD 65; Glucose 103 mg/dL (70-105); Potassium 4.2 mmol/L (3.5-5.1); Sodium 136 mmol/L (136-145)
[2019-01-11 06:56] LABS: Acetaminophen Less than 6.0 mcg/mL (10.0-30.0); Alcohol Less than 10 mg/dL (Less than 10); Salicylate Less than 8.0 mg/dL (15.0-30.0)
[2019-01-11] MEDS ORDERED: Isosorbide Mononitrate (ER) 30 MG TAB PO SCH (09:00)
[2019-01-11] MEDS ORDERED: Aspirin 325 mg Enteric Coated Tablet PO SCH (09:00)
[2019-01-11] MEDS ORDERED: Aspirin 325 MG TAB PO SCH (09:00)
[2019-01-11] MEDS ORDERED: FLU VACC QS2019-20(6MOS UP)/PF 60 MCG/0.5 ML SYRINGE IM ONE (09:00)
[2019-01-11 12:21] VITALS: BP 111/66; TEMP 97.4
[2019-01-11] MEDS ORDERED: Morphine 2 MG/ML SYRINGE SLOW IVP PRN (12:26)
[2019-01-11 13:13] LABS: Amphetamine Not Detected (NotDetected); Barbiturates Screen Not Detected (NotDetected); Benzodiazepine Screen Detected (NotDetected); Cocaine Metabolite Screen Not Detected (NotDetected); Medtox Control Line Valid? VALID (VALID); Medtox Reader # READER 4; Methadone Not Detected (NotDetected); Methamphetamine Not Detected (NotDetected); Opiate Screen Detected (NotDetected); Oxycodone Screen Not Detected (NotDetected); Phencyclidine (PCP) Not Detected (NotDetected); THC/Cannabinoid Screen Not Detected (NotDetected); Tricyclic Screen Not Detected (NotDetected)
--- NOTE | 2019-01-12 19:15 | DIS ---
DATE OF ADMISSION: 01/10/2019 DATE OF DISCHARGE: 01/11/2019 PRIMARY DISCHARGE DIAGNOSIS: Chest pain, which is noncardiac. SECONDARY DISCHARGE DIAGNOSES: History of coronary artery disease/CABG, hypertension, bipolar disorder, dyslipidemia, history of bilateral total knee replacement. PROCEDURES DONE DURING HOSPITALIZATION: Chest x-ray done showed no focal consolidation or edema. H and H 15 and 44, platelet count 211, MCV 90, white count of 9.5. Troponin x3 negative. BUN 24, creatinine 1.2. Liver enzymes within normal limits. Albumin 4.2, lipase 54. Electrolytes stable. Urine drug screen was positive for benzodiazepines and opiates. Plasma alcohol less than 10. DISCHARGE MEDICATIONS: 1. Xanax 2 mg p.o. daily p.r.n. for anxiety. 2. Aspirin 325 mg p.o. daily. 3. Imdur extended release 30 mg p.o. daily. 4. Naprosyn p.r.n. for pain. 5. Protonix 40 mg p.o. daily. 6. Seroquel 100 mg p.o. at bedtime. 7. Tizanidine 2 mg p.o. three times daily p.r.n. 8. Toprol-XL 50 mg p.o. daily. ALLERGIES: KETOROLAC, ZOFRAN, TRAMADOL, CALCIUM CHANNEL BLOCKERS. DISCHARGE PLAN: The patient to follow up with Dr. Cl Talbot his primary care physician in 1 week. BRIEF COURSE DURING HOSPITALIZATION: The patient initially came in with complaints of chest pain. In view of his strong cardiac history, the patient was placed under observation. He has had 3 sets of troponin done which were negative. The patient has had a recent stress test done in November of 2017, which was negative. He has also had an echo done in the same month, which revealed ejection fraction of 45% with inferior wall akinesis and moderate mitral regurgitation. The patient's chest pain completely resolved during his stay here. He has remained hemodynamically stable. He is ambulating. He has history of chronic back pain. He was counseled with regard to medication compliance. He needs to follow up with his primary care physician, Dr. Smallwood in 1 week. Please note, I have seen and examined the patient on the day of discharge. Job ID: [id number] [facility]
--- NOTE | 2019-01-15 14:05 | EKG ---
Test Reason : CP Blood Pressure : / mmHG Vent. Rate : 091 BPM Atrial Rate : 091 BPM P-R Int : 142 ms QRS Dur : 158 ms QT Int : 432 ms P-R-T Axes : 040 074 -10 degrees QTc Int : 531 ms Sinus rhythm with frequent Premature ventricular complexes Right bundle branch block Possible Inferior infarct , age undetermined Abnormal ECG Confirmed by ISSAC WEBB ([id number]), food expeditor ROSEMARY BRIDGES ([id number]) on 01/15/2019 2:04:43 PM Referred By: Confirmed By:ISSAC WEBB
== END 2019-01-11 14:39 | disposition home or self-care (01) ==
LOC: ERS 17:50 → 2SW 19:10
PROVIDERS: ADMIT Internal Medicine; ATTEND Internal Medicine
DX: R07.9 Chest pain, unspecified (principal); R55 Syncope and collapse; I25.10 Atherosclerotic heart disease of native coronary artery without angina pectoris; F31.9 Bipolar disorder, unspecified; I10 Essential (primary) hypertension; E78.5 Hyperlipidemia, unspecified; F17.210 Nicotine dependence, cigarettes, uncomplicated; I25.2 Old myocardial infarction; Z79.82 Long term (current) use of aspirin; Z79.899 Other long term (current) drug therapy; Z88.5 Allergy status to narcotic agent; Z88.8 Allergy status to other drugs, medicaments and biological substances; Z95.1 Presence of aortocoronary bypass graft; Z95.5 Presence of coronary angioplasty implant and graft
CPT/HCPCS: 71045; 80048; 80053; 80306; 80307; 82550; 83690; 84484 ×3; 85025; 93005; 94760; 96361 ×2; 96374 ×2; 96375; 96376; 99285; G0378; 36415; 36416; J2270; J2550; Q0169

== ENCOUNTER 2019-01-16 00:34 | Emergency (ER) | payer MEDICAID, MEDICARE | END 2019-01-16 02:22 | disposition home or self-care (01) | LOC: ERS 00:34 | DX: R07.9 Chest pain, unspecified (principal); E78.00 Pure hypercholesterolemia, unspecified; I10 Essential (primary) hypertension; I25.2 Old myocardial infarction; F41.9 Anxiety disorder, unspecified; F31.9 Bipolar disorder, unspecified; M19.90 Unspecified osteoarthritis, unspecified site; F17.210 Nicotine dependence, cigarettes, uncomplicated; Z85.53 Personal history of malignant neoplasm of renal pelvis | CPT/HCPCS: 36415; 84484; 93005 ==

== ENCOUNTER 2019-01-31 13:53 | Emergency (ER) | payer MEDICARE, MEDICAID ==
[2019-01-31] MEDS ORDERED: methylPREDNISolone Sod Succ/PF 125 MG/2 ML VIAL ONE (14:14)
--- NOTE | 2019-01-31 14:35 | RAD ---
LEFT WRIST THREE VIEWS: 01/31/2019 PROVIDED CLINICAL HISTORY: Pain status post injury. FINDINGS: There is no evidence for fracture or other acute osseous abnormality. If there is persistent clinical concern, conservative management and follow-up imaging are advised. IMPRESSION: As above. POS: TPC
--- NOTE | 2019-01-31 14:37 | RAD ---
RIGHT WRIST RADIOGRAPHS THREE VIEWS: 01/31/2019 PROVIDED CLINICAL HISTORY: Pain status post injury. FINDINGS: There is no evidence for fracture. On the lateral view, the ulnar styloid projects dorsal to the carp us by a substantial amount, which may reflect DRUJ instability. Alignment appears otherwise anatomic. Joint spaces appear preserved. IMPRESSION: Possible distal radio-ulnar joint instability. Correlate clinically. No evidence for fracture. POS: TPC
== END 2019-01-31 15:10 | disposition home or self-care (01) ==
LOC: SCSER 13:53
DX: M25.532 Pain in left wrist (principal); M25.531 Pain in right wrist; E78.00 Pure hypercholesterolemia, unspecified; I10 Essential (primary) hypertension; I25.10 Atherosclerotic heart disease of native coronary artery without angina pectoris; I25.2 Old myocardial infarction; M19.90 Unspecified osteoarthritis, unspecified site; F41.9 Anxiety disorder, unspecified; F31.9 Bipolar disorder, unspecified; F17.210 Nicotine dependence, cigarettes, uncomplicated; Z79.899 Other long term (current) drug therapy
CPT/HCPCS: 96372; J2930

== ENCOUNTER 2019-04-07 14:41 | Emergency (ER) | payer MEDICARE, OTHER ==
--- NOTE | 2019-04-07 15:48 | CT ---
CT LUMBAR SPINE 04/07/19 PROVIDED CLINICAL HISTORY: Back pain status post injury. FINDINGS: Lumbar alignment appears normal. Vertebral body heights are preserved. Intervertebral disc space heig hts are preserved. There is no evidence for fracture. Other than vascular calcifications, the visuali zed extraspinal soft tissues appear unremarkable. 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 Areas of chronic foraminal narrowing on this basis. No gross high grade central canal narrowing is apparen t by CT. IMPRESSION: No evidence for fracture. POS: TPC
== END 2019-04-07 16:15 | disposition home or self-care (01) ==
LOC: ERS 14:41
DX: S39.012A Strain of muscle, fascia and tendon of lower back, initial encounter (principal); E78.5 Hyperlipidemia, unspecified; E78.00 Pure hypercholesterolemia, unspecified; I10 Essential (primary) hypertension; I25.10 Atherosclerotic heart disease of native coronary artery without angina pectoris; I25.2 Old myocardial infarction; M19.90 Unspecified osteoarthritis, unspecified site; F31.9 Bipolar disorder, unspecified; F41.9 Anxiety disorder, unspecified; F17.210 Nicotine dependence, cigarettes, uncomplicated; Z79.899 Other long term (current) drug therapy; X50.0XXA Overexertion from strenuous movement or load, initial encounter
CPT/HCPCS: 72131